=== PATIENT | female | born 1990 | race Caucasian/White ===

== ENCOUNTER 2020-01-18 19:22 | Emergency (ER) | payer OTHER, SELFPAY ==
[2020-01-18 19:45] VITALS: BP 131/66; PULSE 96; RESP 14; TEMP 37.6; O2SAT 100
--- NOTE | 2020-01-18 19:49 | ED.URI ---
HPI - URI/Sore Throat General Chief Complaint: Upper Respiratory Infection Stated Complaint: Ear/Nose/Throat Time Seen by Provider: 01/18/20 19:49 Source: patient and RN notes reviewed History of Present Illness HPI Narrative: Patient is a 29-year-old female that presents the urgent care with complaints of sore throat since last night. Patient states she also feels like her tonsils are swollen. Denies any fever, nausea, vomiting, headache. Denies any use of [id number] medication for symptoms. No other acute complaints. No acute distress noted. Patient read the plan of care. Related Data Home Medications Medication Instructions Recorded Confirmed No Home Medications 01/18/20 01/18/20 Allergies Allergy/AdvReac Type Severity Reaction Status Date / Time hydrocodone AdvReac Mild Nausea and Unverified 01/18/20 20:01 Vomiting Review of Systems Review of Systems: Narrative: CONSTITUTIONAL: Denies fever, chills, or sweats. EYES: Denies visual changes, redness, or discharge. ENT: Reports of sore throat and swelling tonsils CARDIOVASCULAR: Denies chest pain, palpitations, or edema. RESPIRATORY: Denies cough or dyspnea. GASTROINTESTINAL: Denies abdominal pain, nausea, vomiting, or diarrhea. GENITOURINARY: Denies dysuria or hematuria. SKIN: Denies rash or itching. MUSCULOSKELETAL: Denies back pain, joint pain, or myalgia. NEUROLOGIC: Denies headache, numbness, or weakness. All other systems reviewed are negative, except as documented in HPI. PMFSH Comments At the time of my signature, I reviewed and agree with the nursing past medical, surgical, social, and family history. There is no relevant family history pertinent to the patient complaint. Exam Narrative: Exam Narrative: GENERAL: This is a well-nourished, well-developed patient, in no apparent distress. HEAD: normocephalic, atraumatic. EYES: PERRL. Sclera clear/white. Vision is grossly intact. EARS: External ears normal, auditory canals clear and without drainage, TMs normal without perforation. Hearing grossly intact. NOSE: External nose normal with no obvious nasal discharge, nares without redness, no rhinorrhea. THROAT: Mucous membranes moist, moderate erythema noted posterior oropharynx with mild bilateral tonsillar edema without exudate or ulceration. Moderate postnasal drainage. NECK: Neck supple, non-tender without lymphadenopathy CARDIOVASCULAR: Regular rate and rhythm without murmurs, gallops, or rubs. RESPIRATORY: Clear to auscultation. Breath sounds equal bilaterally. No wheezes, rales, or rhonchi. SKIN: warm, intact with no suspicious lesions or rash, good texture and turgor. NEURO: awake, alert, and oriented to person, place and time. There were no obvious focal neurologic abnormalities. EXTREMITIES: No clubbing, cyanosis, or edema. Course Vital Signs Vital signs: Vital Signs Temperature 99.7 F H 01/18/20 19:45 Pulse Rate 96 01/18/20 19:45 Respiratory Rate 14 01/18/20 19:45 Blood Pressure 131/66 01/18/20 19:45 Pulse Oximetry 100 01/18/20 19:45 Temperature 99.7 F H 01/18/20 19:45 Pulse Rate 96 01/18/20 19:45 Respiratory Rate 14 01/18/20 19:45 Blood Pressure 131/66 01/18/20 19:45 Pulse Oximetry 100 01/18/20 19:45 Reviewed MDM - URI/Sore Throat MDM Narrative Medical decision making narrative: Reviewed lab results with the patient. She is aware that strep swab was positive. Advised patient to complete antibiotic regimen as prescribed. Use Tylenol/ibuprofen as needed for fever pain. Increase fluids and rest. Be sure to eat and drink with medication. Use humidifier at night. Follow-up with PCP within 2 to 5 days or for worsening symptoms or failure to improve. Differential Diagnosis Differential diagnosis: Likely upper respiratory infection, otitis media, sinusitis, viral infection, bronchitis, influenza and pharyngitis Lab Data Attestation: I reviewed the patient's lab results. Critical Care Time Betsy
== END 2020-01-18 20:05 | disposition home or self-care (01) ==
PROVIDERS: Emergency Provider Nurse Practitioner Family
DX: J02.0 Streptococcal pharyngitis (principal); Q79.8 Other congenital malformations of musculoskeletal system
CPT/HCPCS: 87880; 99213; G0463

== ENCOUNTER 2021-11-07 17:48 | Emergency (ER) | payer OTHER, SELFPAY ==
[2021-11-07 17:54] VITALS: BP 132/79; PULSE 102; RESP 16; TEMP 37.2; O2SAT 98
[2021-11-07 20:04] VITALS: BP 143/55; PULSE 86; TEMP 37.8; O2SAT 99
--- NOTE | 2021-11-07 20:18 | ED.GENADULT ---
HPI - General Adult General Chief complaint: Fever Stated complaint: High fever, body aches- yesterday Time Seen by Provider: 11/07/21 20:11 History of Present Illness HPI narrative: Patient a 31-year-old female who presents the emergency department with chief complaint of cough body aches and fever. The patient reports that she has been around an individual has had viral symptoms and loss of taste and smell. The patient states she has not been vaccinated reports that she is concerned that she may have Covid. Related Data Home Medications Medication Instructions Recorded Confirmed No Home Medications 01/18/20 01/18/20 Allergies Allergy/AdvReac Type Severity Reaction Status Date / Time hydrocodone AdvReac Mild Nausea and Unverified 01/18/20 20:01 Vomiting Review of Systems Review of Systems: A 10 system review of systems was completed on the patient and is negative except for what is stated in the HPI. Nursing and ancillary documentation was reviewed. Exam Narrative: GENERAL: Well-appearing, well-nourished, and in no acute distress. HEAD: Normocephalic, atraumatic. EYES: PERRLA and EOMI. ENT: Nares clear, no rhinorrhea or epistaxis. Mucous membranes moist. NECK: Supple. CHEST: Clear to auscultation. No respiratory distress. HEART: Regular rate and rhythm. No murmur heard. Normal peripheral pulses. ABDOMEN: Soft, nontender, nondistended, normal active bowel sounds. EXTREMITIES: Normal range of motion. No edema. SKIN: Warm, dry, no rash. NEURO: No focal deficits. Alert and oriented x3. PSYCH: Normal mood and affect. Course Vital Signs Vital signs: Vital Signs Temperature 37.2 C 11/07/21 17:54 Pulse Rate 102 H 11/07/21 17:54 Respiratory Rate 16 11/07/21 17:54 Blood Pressure 132/79 11/07/21 17:54 Pulse Oximetry 98 11/07/21 17:54 Temperature 37.8 C H 11/07/21 20:04 Pulse Rate 86 11/07/21 20:04 Respiratory Rate 16 11/07/21 17:54 Blood Pressure 143/55 H 11/07/21 20:04 Pulse Oximetry 99 11/07/21 20:04 Medical Decision Making Vital Signs Vital Signs: Vital Signs Temperature 37.2 C 11/07/21 17:54 Pulse Rate 102 H 11/07/21 17:54 Respiratory Rate 16 11/07/21 17:54 Blood Pressure 132/79 11/07/21 17:54 Pulse Oximetry 98 11/07/21 17:54 Temperature 37.8 C H 11/07/21 20:04 Pulse Rate 86 11/07/21 20:04 Respiratory Rate 16 11/07/21 17:54 Blood Pressure 143/55 H 11/07/21 20:04 Pulse Oximetry 99 11/07/21 20:04 Discharge Plan Discharge Clinical Impression: Acute viral syndrome Patient Disposition: Home, Self-Care Condition: Stable Instructions: Antibiotic Form, Viral Syndrome (ED) Prescriptions: No Action amoxicillin 500 mg tablet 500 mg PO Q12H Qty: 20 RF: 0 No Home Medications RF: 0 Follow-up/Referrals: Siva Mac MD [Primary Care Provider] - Time of Disposition: 20:21
[2021-11-09 14:20] LABS: SARS-CoV-2 RNA PCR Positive
== END 2021-11-07 20:38 | disposition home or self-care (01) ==
PROVIDERS: Emergency Provider Emergency Medicine; PCP Family Medicine
DX: U07.1 COVID-19 (principal)
CPT/HCPCS: 99283; C9803; U0003; U0005

== ENCOUNTER 2022-11-23 10:52 | Emergency (ER) | payer OTHER, SELFPAY ==
[2022-11-23 10:58] VITALS: BP 142/75; PULSE 88; RESP 20; TEMP 37.1; O2SAT 100
--- NOTE | 2022-11-23 11:18 | ED.FEMALEGU ---
HPI - Female Genitourinary General Chief complaint: Urogenital-Female Stated complaint: Poss UTI Time Seen by Provider: 11/23/22 10:57 Source: patient and RN notes reviewed Mode of arrival: ambulatory Limitations: no limitations History of Present Illness HPI Narrative: 32-year-old female presents concern for 5 day history of vaginal pressure, urine frequency. She denies painful urination, flank pain, abdominal pain, nausea, fever. She denies taking any medications for her symptoms. Denies abnormal vaginal discharge MD elicited complaint: UTI Related Data Allergies Allergy/AdvReac Type Severity Reaction Status Date / Time hydrocodone AdvReac Mild Nausea and Unverified 01/18/20 20:01 Vomiting Review of Systems Review of Systems: CONSTITUTIONAL: Denies malaise, chills, sweats, or fever. CARDIOVASCULAR: Denies chest pain, palpitations, or edema. RESPIRATORY: Denies cough or dyspnea. GASTROINTESTINAL: Denies abdominal pain, nausea, vomiting, diarrhea GENITOURINARY: Reports frequency, suprapubic pressure, decreased urine. Denies flank pain or hematuria. SKIN: Denies rash or itching. MUSCULOSKELETAL: Denies back pain or myalgia. All systems reviewed & are unremarkable except as noted in HPI and below PMFSH Comments At time of signature, agree with nursing past medical, surgical, social and family history. There is no relevant family history pertinent to the presenting complaint Exam Narrative: GENERAL: Well-appearing, well-nourished, and in no acute distress. HEAD: Normocephalic. EYES: PERRLA, conjunctivae clear. NECK: Supple. No lymphadenopathy CHEST: Clear to auscultation. No respiratory distress. HEART: Regular rate and rhythm. ABDOMEN: Soft, nontender upon palpation, nondistended, normal active bowel sounds, no palpable or pulsatile masses, no guarding. No CVA tenderness SKIN: Warm, dry, no rash. NEURO: Alert and oriented x3. PSYCH: Normal mood and affect Course Course Emergency Course: Patient is aware of diagnosis, understands and agrees to treatment plan. Anticipatory guidance given. Patient agrees to follow-up as directed and is aware of reasons to seek care at the emergency department. Portions of this record may have been created with voice recognition software Level of Care: Express Care Visit Vital Signs Vital signs: Vital Signs Temperature 98.8 F 11/23/22 10:58 Pulse Rate 88 11/23/22 10:58 Respiratory Rate 20 11/23/22 10:58 Blood Pressure 142/75 H 11/23/22 10:58 Pulse Oximetry 100 11/23/22 10:58 Oxygen Delivery Room Air 11/23/22 10:58 Temperature 98.8 F 11/23/22 10:58 Pulse Rate 88 11/23/22 10:58 Respiratory Rate 20 11/23/22 10:58 Blood Pressure 142/75 H 11/23/22 10:58 Pulse Oximetry 100 11/23/22 10:58 Oxygen Delivery Room Air 11/23/22 10:58 Reviewed. MDM - Female Genitourinary MDM Narrative Medical decision making narrative: Exam findings and UA show no acute concerns or changes; patient is non-toxic appearing and is in no distress. Patient is appropriate for outpatient treatment and follow-up. Differential Diagnosis Differential diagnosis: Likely urinary tract infection and cystitis Lab Data Labs: Urine Glucose Negative Reference Range: Negative Urine Bilirubin Negative Reference Range: Negative Urine Ketone Negative Reference Range: Negative Urine Specific [place] 1.030 Reference Range:1.001-1.035 Urine Blood 2+ Reference Range: Negative * * Urine pH 6.0 Reference Range: 5.0-9.0 Ur
== END 2022-11-23 11:26 | disposition home or self-care (01) ==
PROVIDERS: Emergency Provider Nurse Practitioner
DX: N39.0 Urinary tract infection, site not specified (principal)
CPT/HCPCS: 81003; 87077; 87086; 87186; 99213; G0463

== ENCOUNTER 2023-10-31 09:24 | Emergency (ER) | payer OTHER, SELFPAY ==
[2023-10-31 09:48] VITALS: BP 141/76; PULSE 76; RESP 18; TEMP 36.7; O2SAT 100
--- NOTE | 2023-10-31 12:24 | PC.NURSE ---
Pt A&Ox4. Pt left before seen by provider.
== END 2023-10-31 12:24 | disposition left against medical advice (07) ==
DX: R10.9 Unspecified abdominal pain (principal)
CPT/HCPCS: 99199

== ENCOUNTER 2024-02-06 11:51 | Emergency (ER) | payer OTHER, SELFPAY ==
[2024-02-06 11:58] VITALS: BP 143/78; PULSE 84; RESP 20; TEMP 36.7; O2SAT 99
--- NOTE | 2024-02-06 12:14 | ED.EAR ---
HPI - Ear Problem General Chief complaint: Ear Stated complaint: Ear Problem Time Seen by Provider: 02/06/24 12:11 Source: patient and RN notes reviewed Mode of arrival: ambulatory Limitations: no limitations History of Present Illness HPI Narrative: Patient presents today complaining of left ear muffling x1 week, constantly over the past 2-3 days. Denies pain, URI symptoms, drainage. 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 History of cerumen impactions Related Data Home Medications Medication Instructions Recorded Confirmed No Home Medications 02/06/24 02/06/24 Allergies Allergy/AdvReac Type Severity Reaction Status Date / Time hydrocodone AdvReac Mild Nausea and Unverified 02/06/24 12:09 Vomiting Review of Systems Review of Systems: CONSTITUTIONAL: Denies body aches, fever, chills, or sweats. EYES: Denies visual changes, redness, or discharge. ENT: Denies rhinorrhea, congestion, sore throat, or otalgia.+ muffling to left ear CARDIOVASCULAR: Denies chest pain, palpitations, or edema. RESPIRATORY: Denies cough or dyspnea. GASTROINTESTINAL: Denies abdominal pain, nausea, vomiting, or diarrhea. GENITOURINARY: Denies dysuria or hematuria. SKIN: Denies rash, itching, or wounds. MUSCULOSKELETAL: Denies back pain, joint pain, or myalgia. NEUROLOGIC: Denies headache, numbness, tingling, or weakness. PSYCH: Denies depression or anxiety. PMFSH Comments At time of signature, I have reviewed and agree with nursing past medical, surgical, social and family history unless otherwise noted. Please see nursing chart for further information. There is no relevant family history pertinent to the presenting complaint Exam Narrative: GENERAL: Well-appearing, well-nourished, and in no acute distress. HEAD: Normocephalic, atraumatic. EYES: EOMI. No redness or drainage. Conjunctivae normal. ENT: Mucous membranes pink and moist. Bilateral cerumen impactions NECK: Normal AROM. CHEST: No respiratory distress. EXTREMITIES: Normal range of motion. No edema. SKIN: Warm, dry, no rash. Capillary refill normal. Normal skin turgor. NEURO: No focal deficits. Alert and oriented x3. Gait steady. PSYCH: Normal affect. No signs of depression or anxiety. Course Course Level of Care: Express Care Visit Vital Signs Vital signs: Vital Signs Temperature 98.0 F 02/06/24 11:58 Pulse Rate 84 02/06/24 11:58 Respiratory Rate 20 02/06/24 11:58 Blood Pressure 143/78 H 02/06/24 11:58 Pulse Oximetry 99 02/06/24 11:58 Oxygen Delivery Room Air 02/06/24 11:58 Temperature 98.0 F 02/06/24 11:58 Pulse Rate 84 02/06/24 11:58 Respiratory Rate 20 02/06/24 11:58 Blood Pressure 143/78 H 02/06/24 11:58 Pulse Oximetry 99 02/06/24 11:58 Oxygen Delivery Room Air 02/06/24 11:58 Reviewed Procedures Ear Wax Removal Both Ears: Ear Wax Removal Date: 02/06/24 Ear Wax Removal Time: 12:36 Results: Re-examined: cerumen removed completely (left) and some cerumen remains (right) TM Examination: TM(s) intact, normal appearance (left) Ear Canal Exam: atraumatic Patient Tolerated Procedure: well Complications: no problems Technique: ear canal irrigated Additional Comments: Large amount of wax removed from left ear. Attempted irrigation to right ear, but no wax resulting. Recommend ENT follow-up. Medical Decision Making MDM Narrative Medical decision making narrative: Cerumen impaction removed from left ear and hearing restored. Cerumen impaction attempted removal from right ear, but was unsuccessful. Recommend ENT follow-up. Patient agrees with plan. Anticipatory guidance given. Differential Diagnosis Differential Diagnosis: Otitis media, otitis externa, ruptured TM, serous otitis, cerumen impaction Vital Signs Vital Signs: Vital Signs Temperature 98.0 F 02/06/24 11:58 Pulse Rate 84 02/06/24 11:58 Respiratory Rate 20
== END 2024-02-06 12:55 | disposition home or self-care (01) ==
PROVIDERS: Emergency Provider Nurse Practitioner
DX: H61.23 Impacted cerumen, bilateral (principal)
CPT/HCPCS: 69209; 99212; A9270; G0463

== ENCOUNTER 2025-08-23 15:22 | Emergency (ER) | payer OTHER, SELFPAY ==
--- NOTE | 2025-08-23 15:24 | ED_ITS ---
HPI - Ear Problem General Chief complaint: Ear Stated complaint: right ear muffled Time Seen by Provider: 08/23/25 15:24 Source: patient Mode of arrival: ambulatory Limitations: no limitations History of Present Illness HPI Narrative: Zaida is a 35 year old female patient presenting to the clinic today with c/o muffled right ear/hearing x 4-5 days. She reports decreased hearing in the right ear. Normally can on hear 5-10% in the right ear. No fever or URI symptoms. Related Data Home Medications ?Medication ?Instructions ?Recorded ?Confirmed ?Last Taken ?Type No Home Medications 02/06/24 08/23/25 U nknown History Allergies Allergy/AdvReac Type Severity Reaction Status Date / Time hydrocodone AdvReac Mild Nausea and Verified 08/23/25 15:35 Vomiting Review of Systems Review of Systems: Pertinent positives per HPI. Patient denies any fever, chills, rash, headache, visual changes, dizziness, cough, runny nose, sore throat, shortness of breath, chest pain, palpitations, nausea, vomiting, diarrhea, constipation, abdominal pain, or any urinary issues. PMFSH Comments At the time of my signature, I reviewed and agree with the nursing past medical, surgical, social, and family history. There is no relevant family history pertinent to the patient complaint. Exam Narrative: General: Well-developed, well nourished, in no apparent distress Head: Normocephalic, atraumatic Eyes: Pupils equally round and reactive to light bilaterally, EOM intact, sclera and conjunctive clear, no discharge, lids normal Ears: Right cerumen impaction, ear irrigation performed successfully, TMs intact and clear, ear canals clear, no drainage, grossly hearing normal. Nose: Nares patent, no discharge, no inflammation, no sinus tenderness. Mouth: Oropharynx without lesions or masses, good dentition, MMM. Neck: Supple, trachea midline, no enlargement of anterior or posterior cervical nodes, no thyroid masses or goiter palpable. Cardio: Regular rate and rhythm, s1 and s2 normal, no murmur appreciated. Resp: Clear to auscultation bilaterally anteriorly and posteriorly, no rhonchi, rales, wheezing or rubs Course Course Emergency Course: Portions of this record may have been created with voice recognition software. Level of Care: Express Care Visit Vital Signs Vital signs: Vital Signs Temperature 36.5 C 08/23/25 15:40 Pulse Rate 84 08/23/25 15:40 Respiratory Rate 18 08/23/25 15:40 Blood Pressure 144/76 H 08/23/25 15:40 Pulse Oximetry 100 08/23/25 15:40 Oxygen Delivery Room Air 08/23/25 15:40 Temperature 36.5 C 08/23/25 15:40 Pulse Rate 84 08/23/25 15:40 Respiratory Rate 18 08/23/25 15:40 Blood Pressure 144/76 H 08/23/25 15:40 Pulse Oximetry 100 08/23/25 15:40 Oxygen Delivery Room Air 08/23/25 15:40 Vital signs reviewed Procedures Ear Wax Removal Right Ear: Ear Wax Removal Date: 08/23/25 Results: Re-examined: cerumen removed completely TM Examination: TM(s) intact, normal appearance Ear Canal Exam: atraumatic Patient Tolerated Procedure: well and no complications Complications: no problems Technique: ear canal irrigated and ear canal curetted Additional Comments: Verbal consent obtained for ear irrigation. Risk and benefits explained and patient voiced understanding. Ear irrigation performed using an elephant ear, spray water bottle, and a lighted curette. Mixture of 1/2 peroxide 1/2 water used to irrigate ear canal. Cerumen impaction cleared and TM visualized without redness. Grossly hearing normal. Patient tolerated procedure well Medical Decision Making MDM Narrative Medical decision making narrative: At the time of visit patient is resting comfortably on the exam table. Patient appears to be nontoxic. C/o muffled right ear/hearing x 4-5 days. She reports decreased hearing in the right ear. Normally can on hear 5-10% in the right ear. No fever or URI symptoms. Right ear irrigation ordered. Procedures: Right ear irrigation performed successful in the clinic today. Patient tolerated well Plan: Patient has right cerumen impaction. Ear irrigation performed suc cessfully. Supportive measures were discussed with the patient and they voiced understanding discharge instructions and agrees to treatment plan. Return precautions reviewed Differential Diagnosis Differential Diagnosis: Otitis media, otitis externa, eustachian tube dysfunction, cerumen impaction, upper respiratory infection, serous otitis Vital Signs Vital Signs: Vital Signs Temperature 36.5 C 08/23/25 15:40 Pulse Rate 84 08/23/25 15:40 Respiratory Rate 18 08/23/25 15:40 Blood Pressure 144/76 H 08/23/25 15:40 Pulse Oximetry 100 08/23/25 15:40 Oxygen Delivery Room Air 08/23/25 15:40 Temperature 36.5 C 08/23/25 15:40 Pulse Rate 84 08/23/25 15:40 Respiratory Rate 18 08/23/25 15:40 Blood Pressure 144/76 H 08/23/25 15:40 Pulse Oximetry 100 08/23/25 15:40 Oxygen Delivery Room Air 08/23/25 15:40 Discharge Plan Discharge Clinical Impression: Impacted cerumen of right ear Patient Disposition: Home Condition: Stable Instructions: Antibiotic Form Additional Instructions: Ear irrigation was performed in the clinic today Follow-up with your primary care doctor as needed Patient Language: Guyanese Prescriptions: No Action No Home Medications Follow-up/Referrals: PHYSICIAN,WEAVER APPRENTICE [Primary Care Provider, Internal Medicine] Time of Disposition: 16:12 Quality NIHSS Nursing Documentation ED NIHSS nursing documentation: reviewed/agree
[2025-08-23 15:40] VITALS: BP 144/76; PULSE 84; RESP 18; TEMP 36.5; O2SAT 100
[2025-08-23] MEDS: CARBAMIDE PEROXIDE 6.5% OT SOLN 15 ML BTL 5 DROP RIGHT EAR (15:46)
== END 2025-08-23 16:13 | disposition home or self-care (01) ==
PROVIDERS: Emergency Provider Nurse Practitioner Family
DX: H61.21 Impacted cerumen, right ear (principal)
CPT/HCPCS: 69210; 99212; A9270; G0463